=== PATIENT | male | born 1970 | race Caucasian/White ===

== ENCOUNTER 2022-04-22 | Day surgery (SDC) | payer BC, SELFPAY ==
[2022-04-03 14:07] VITALS: BMI 32.8
[2022-04-22 06:28] VITALS: BP 154/87; PULSE 66; RESP 17; TEMP 36.5; O2SAT 97; BMI 34.2
[2022-04-22] MEDS: LACTATED RINGERS 1,000 ML 150 ML IV CONT (06:38)
--- NOTE | 2022-04-22 07:11 | P.PNAN_ITS ---
Anes - Initial Pre Proc Eval Procedure: Operation Date: 04/22/22 07:30 Proposed Procedures p Screening Colonoscopy - Tobin Walker MD Date/Time: 04/22/22 07:11 Surgeon: Tobin Walker MD Pre Op Diagnosis: neoplasm screening Patient Data Age: 52 Gender: M Height: 1.93 m Weight: 127.7 kg Last Vital Signs Temp 97.7 F 04/22/22 06:28 Pulse 66 04/22/22 06:28 Resp 17 04/22/22 06:28 BP 154/87 H 04/22/22 06:28 Pulse Ox 97 04/22/22 06:28 O2 Del Method Room Air 04/22/22 06:28 Allergies Allergy/AdvReac Type Severity Reaction Status Date / Time No Known Allergies Allergy Verified 04/22/22 06:27 Home Medications Medication Instructions Recorded Confirmed Type hydrochlorothiazide 25 mg tablet 25 mg PO DAILY 04/03/22 04/22/22 History rosuvastatin 10 mg tablet 10 mg PO DAILY 04/03/22 04/22/22 History Patient hx anesthesia problems: none Family hx anesthesia problems: none Results Review: All pre-operative results and documents have been reviewed as part of the pre- operative evaluation. PMF Social History Social History Smoking status: Current some day smoker Tobacco type: cigars Alcohol intake: current Drinks per week: 15 Substance use type: does not use Living arrangements: with family Spiritual care concerns: No Anes - Eval Final PreProcedure Day of Procedure 04/22/22 07:11 Patient weight: obese Heart: regular rate and rhythm Lungs: clear to auscultation Airway: Mallampati scale class II Neurological: alert and oriented Last oral intake: >/= 8 hours ASA classification: III Emergent: no Anesthetic plan: proceed Anesthesia type and monitoring: general GIVS and standard monitoring Results Review: All pre-operative results and documents have been reviewed as part of the pre- operative evaluation. Informed Consent: The patient's anesthetic plan and its attendant risks and benefits were discussed with the patient/family/POA. Questions were solicited and answers provided to the satisfaction of the patient/family/POA.
--- NOTE | 2022-04-22 07:27 | P.HP_ITS ---
H&P: HPI History of Present Illness Date/Time: 04/22/22 07:27 Chief Complaint: Neoplasia screening. Narrative: This is a 52-year-old white male patient presents for neoplasia screening. Patient's current weight appetite bowel movements are normal. Patient denies abdominal pain. He has had no bleeding. Family history is noncontributory. Review of Systems 2 Review of Systems: Review of systems is noncontributory. [facility] Social History Social History Smoking status: Current some day smoker Tobacco type: cigars Alcohol intake: current Drinks per week: 15 Substance use type: does not use Living arrangements: with family Spiritual care concerns: No Meds Home Medications and Allergies Home Medications Medication Instructions Recorded Confirmed Type hydrochlorothiazide 25 mg tablet 25 mg PO DAILY 04/03/22 04/22/22 History rosuvastatin 10 mg tablet 10 mg PO DAILY 04/03/22 04/22/22 History Allergies Allergy/AdvReac Type Severity Reaction Status Date / Time No Known Allergies Allergy Verified 04/22/22 06:27 Vital Signs Vital Signs - 24 hr 04/22/22 06:28 Temperature 97.7 F Pulse Rate 66 Respiratory Rate 17 Blood Pressure 154/87 H Pulse Oximetry 97 Oxygen Delivery Room Air Exam Narrative: Physical exam reveals patient to be alert. Vital signs stable. HEENT exam is unremarkable. Patient is anicteric. Lungs are clear to auscultation and percussion. Heart is without murmur or extra sounds. Abdomen bowel sounds are present soft nontender with no organomegaly. Digital external rectal exam is normal. Assessment and Plan Assessment and plan (1) Encounter for screening colonoscopy: Code(s): Z12.11 - Encounter for screening for malignant neoplasm of colon Status: Acute Assessment and Plan: Patient presents today for neoplasia screening colonoscopy. Appears to be at average risk for colon polyps. Further recommendations will be given after endoscopy.
[2022-04-22 07:50] VITALS: BP 102/61; PULSE 66; RESP 18; O2SAT 98
[2022-04-22 08:00] VITALS: BP 106/63; PULSE 66; RESP 18; O2SAT 97
[2022-04-22 08:10] VITALS: BP 124/69; PULSE 66; RESP 18; O2SAT 97
== END 2022-04-22 08:20 | disposition home or self-care (01) ==
PROVIDERS: PCP Family Medicine; Visit Provider Internal Medicine Gastroenterology
PROC: 0DJD8ZZ Inspection of Lower Intestinal Tract, Via Natural or Artificial Opening Endoscopic (ICD-10-PCS; CPT 45378; principal; 2022-04-22 07:30)
DX: Z12.11 Encounter for screening for malignant neoplasm of colon (principal); K63.5 Polyp of colon; K62.1 Rectal polyp; F17.210 Nicotine dependence, cigarettes, uncomplicated; E66.9 Obesity, unspecified; Z68.34 Body mass index [BMI] 34.0-34.9, adult
CPT/HCPCS: 45385; 88305; J2704; J7120